=== PATIENT | male | born 1935 | race Native Hawaiian/Other Pacific Islander ===

== ENCOUNTER 2021-12-08 09:52 | Emergency (ER) | payer OTHER ==
[~2021-12-08] VITALS: Ht 180.3 cm; Wt 97.5 kg
[2021-12-08 09:57] VITALS: BP 110/46; TEMP 98.9
[2021-12-08] MEDS ORDERED: CIPR500T PO (11:17)
== END 2021-12-08 11:36 | disposition home or self-care (01) ==
LOC: ED 09:52
PROC: 0HQFXZZ Repair Right Hand Skin, External Approach (ICD-10-PCS; principal; 2021-12-08)
DX: S61.411A Laceration without foreign body of right hand, initial encounter (principal); W29.8XXA Contact with other powered hand tools and household machinery, initial encounter; Y93.H9 Activity, other involving exterior property and land maintenance, building and construction; Y92.89 Other specified places as the place of occurrence of the external cause
CPT/HCPCS: 90715; 96372; 99283; J0696

== ENCOUNTER 2021-12-22 08:15 | Emergency (ER) | payer OTHER ==
[~2021-12-22] VITALS: Ht 180.3 cm; Wt 97.5 kg
[~2021-12-22 08:15] MED LIST: CIPR500T PO
[2021-12-22 08:25] VITALS: BP 129/69; TEMP 97.4
== END 2021-12-22 08:38 | disposition home or self-care (01) ==
LOC: ED 08:15
DX: Z48.02 Encounter for removal of sutures (principal); M19.041 Primary osteoarthritis, right hand